=== PATIENT | male | born 1945 | race Caucasian/White ===

== ENCOUNTER → 2020-09-06 | Day surgery (SDC) | payer MEDICARE, BC ==
[~2020-09-06] MED LIST: Ketamine 200 MG/20 ML MDV ONE; Lactated Ringers 1,000 ML IV SCH; Propofol 200 MG/20 ML SDV ONE; fentaNYL 100 MCG/2 ML SDV ONE
[2020-09-06 09:20] VITALS: BP 102/73; PULSE 64
--- NOTE | 2020-09-06 11:14 | OR ---
DATE OF OPERATION: 09/06/2020 PREOPERATIVE DIAGNOSIS: CONSTIPATION. POSTOPERATIVE DIAGNOSIS: CONSTIPATION. SURGEON: Eliezer Holley MD PROCEDURE: 1. FULL-LENGTH COLONOSCOPY. 2. FORCEPS POLYPECTOMY X1. ANESTHESIA: MAC. COMPLICATIONS: None. SPECIMEN: 1. Small sessile cecal polyp. 2. Ascending colon biopsy x1. FINDINGS: 1. Full-length colonoscopy. 2. Severe mills-diverticulosis. 3. Mild melanosis coli. 4. Small sessile polyp, cecum. RECOMMENDATIONS: Followup colonoscopy in 5 years. INDICATIONS: The patient had been having some ongoing issues with constipation. We elected to proceed due to altered bowel habits. His last colonoscopy was 8 years ago. DESCRIPTION OF PROCEDURE: The patient was prepped and draped and placed in the left lateral decubitus position. A lubricated Olympus colonoscope was inserted and easily advanced through the cecum. Direct visualization of the ileocecal valve and appendiceal orifice was accomplished. The bowel prep was adequate. Upon withdrawal of the scope, in the cecal pouch, just in front of the ascending colon, the patient had a small 4 to 5 mm tubular adenoma removed in its entirety with forceps biopsy x2. 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 No inflammatory changes were seen. He did have signs of melanosis coli related to his constipation. Biopsy of the ascending colon was taken for confirmation. The rest of the transverse, descending, sigmoid, and rectosigmoid areas were free of any polyps, masses, ulcerations, or bleeding sites. No signs of any other worrisome lesions. The rectal vault appeared benign. Retroflexion of the scope in the rectum showed no anal lesions. Air was suctioned. The scope was removed without complication. CASPER/MARY /[id number]
== END ==
LOC: CC.SDS 07:54
PROVIDERS: ATTEND Family Medicine
DX: D12.0 Benign neoplasm of cecum (principal); K57.30 Diverticulosis of large intestine without perforation or abscess without bleeding; K59.00 Constipation, unspecified; K63.89 Other specified diseases of intestine; N40.1 Benign prostatic hyperplasia with lower urinary tract symptoms; N39.43 Post-void dribbling; E78.2 Mixed hyperlipidemia; M48.061 Spinal stenosis, lumbar region without neurogenic claudication; N52.9 Male erectile dysfunction, unspecified; E03.9 Hypothyroidism, unspecified; Z88.5 Allergy status to narcotic agent; Z20.828 Contact with and (suspected) exposure to other viral communicable diseases; Z01.812 Encounter for preprocedural laboratory examination; Z79.899 Other long term (current) drug therapy; Z79.82 Long term (current) use of aspirin; Z79.890 Hormone replacement therapy
CPT/HCPCS: 45380; J2704; J3010; J7120

== ENCOUNTER 2023-04-20 15:20 | Emergency (ER) | payer MEDICARE, BC ==
[2023-04-20 15:27] VITALS: BP 147/72; PULSE 85
[2023-04-20 15:45] LABS: BASOPHILS ABSOLUTE AUTO 0.01 10^3/uL (0.00-0.50); BASOPHILS PERCENT AUTO 0.2 % (0-1); EOSINOPHILS ABSOLUTE AUTO 0.21 10^3/uL (0.00-1.50); EOSINOPHILS PERCENT AUTO 3.5 % (0-6); HEMATOCRIT 41.6 % (42.0-52.0); HEMOGLOBIN 13.8 g/dL (14.0-18.0); IMMATURE GRAN ABSOLUTE AUTO 0.01 10^3/uL (0.00-0.49); IMMATURE GRAN PERCENT AUTO 0.2 % (0.0-4.9); LYMPHOCYTES ABSOLUTE AUTO 1.69 10^3/uL (0.60-5.00); LYMPHOCYTES PERCENT AUTO 28.3 % (24-44); MEAN CORPUSCULAR HEMOGLOBIN 29.9 pg (27.0-32.0); MEAN CORPUSCULAR HGB CONC 33.2 g/dL (32.0-36.0); MEAN CORPUSCULAR VOLUME 90.2 fL (83.0-97.0); MONOCYTES ABSOLUTE AUTO 0.46 10^3/uL (0.00-1.50); MONOCYTES PERCENT AUTO 7.7 % (0-10); NEUTROPHILS ABSOLUTE AUTO 3.59 x10^3/uL (1.80-8.00); NEUTROPHILS PERCENT AUTO 60.1 % (41-71); PLATELET COUNT,PLT 162 10^3/uL (150-400); RED BLOOD CELL COUNT 4.61 x10^6/uL (4.50-6.00)
[2023-04-20 15:56] LABS: ALBUMIN 3.7 g/dL (3.4-5.0); BILIRUBIN TOTAL 0.5 mg/dL (0.0-1.0); C-REACTIVE PROTEIN 0.81 mg/dL (<=0.30); CALCIUM 8.7 mg/dL (8.4-10.1); CREATININE 1.2 mg/dL (0.7-1.3); EST CRCL DRUG DOSING (CG) 54.91 mL/min; POTASSIUM,K 4.7 mEq/L (3.5-5.0); PROTEIN TOTAL,TP 6.7 g/dL (6.4-8.2)
== END 2023-04-20 16:38 | disposition home or self-care (01) ==
LOC: CC.ED 15:20
DX: J98.8 Other specified respiratory disorders (principal); B97.89 Other viral agents as the cause of diseases classified elsewhere; Z88.5 Allergy status to narcotic agent; Z20.822 Contact with and (suspected) exposure to COVID-19
CPT/HCPCS: 36415; 71046; 80053; 85025; 86140; 87430; 87804; 99283; 99284; U0002

== ENCOUNTER 2024-10-01 09:25 | Observation (INO) | payer MEDICARE, BC ==
[2024-10-01 09:42] LABS: BASOPHILS ABSOLUTE AUTO 0.02 10^3/uL (0.00-0.50); BASOPHILS PERCENT AUTO 0.2 % (0-1); EOSINOPHILS ABSOLUTE AUTO 0.18 10^3/uL (0.00-1.50); EOSINOPHILS PERCENT AUTO 2.2 % (0-6); HEMATOCRIT 40.3 % (42.0-52.0); IMMATURE GRAN ABSOLUTE AUTO 0.03 10^3/uL (0.00-0.49); IMMATURE GRAN PERCENT AUTO 0.4 % (0.0-4.9); LYMPHOCYTES ABSOLUTE AUTO 1.08 10^3/uL (0.60-5.00); LYMPHOCYTES PERCENT AUTO 13.5 % (24-44); MEAN CORPUSCULAR HEMOGLOBIN 29.9 pg (27.0-32.0); MEAN CORPUSCULAR HGB CONC 32.3 g/dL (32.0-36.0); MEAN CORPUSCULAR VOLUME 92.6 fL (83.0-97.0); MONOCYTES ABSOLUTE AUTO 1.14 10^3/uL (0.00-1.50); MONOCYTES PERCENT AUTO 14.2 % (0-10); NEUTROPHILS ABSOLUTE AUTO 5.57 x10^3/uL (1.80-8.00); NEUTROPHILS PERCENT AUTO 69.5 % (41-71); PLATELET COUNT,PLT 159 10^3/uL (150-400); RED BLOOD CELL COUNT 4.35 x10^6/uL (4.50-6.00)
[2024-10-01 09:59] LABS: ALANINE AMINOTRANSFERASE,ALT 22 U/L (12-78); ALBUMIN 3.6 g/dL (3.4-5.0); ALKALINE PHOSPHATASE 65 U/L (46-116); ASPARTATE AMNIOTRANSFERASE,AST 18 U/L (15-37); BILIRUBIN TOTAL 0.5 mg/dL (0.0-1.0); BLOOD UREA NITROGEN,BUN 21 mg/dL (7-18); C-REACTIVE PROTEIN 5.83 mg/dL (<=0.50); CALCIUM 8.9 mg/dL (8.4-10.1); CARBON DIOXIDE,CO2 29 mmol/L (21-32); CHLORIDE,CL 105 mEq/L (98-106); CREATININE 1.2 mg/dL (0.7-1.3); EST CRCL DRUG DOSING (CG) 54.03 mL/min; ESTIMATED GFR 62 mL/min (>=60); GLUCOSE RANDOM 155 mg/dL (75-99); POTASSIUM,K 4.8 mEq/L (3.5-5.0); PROTEIN TOTAL,TP 6.6 g/dL (6.4-8.2); SODIUM,NA 142 mEq/L (136-145)
[2024-10-01] MEDS: Ondansetron 4 MG/2 ML SDV IVPUSH STA (10:05)
[2024-10-01] MEDS: Meclizine 12.5 MG Tab PO ONE (10:05)
[2024-10-01] MEDS: Take Home: Ondansetron 4 MG Tab.DIS, 2 Tab Pack PO ONE (10:23)
[2024-10-01] MEDS: Take Home: Meclizine 12.5 MG Tab, 4 Tab Pack PO ONE (10:24)
[2024-10-01] MEDS ORDERED: Promethazine 25 MG Tab PO PRN (11:48)
[2024-10-01] MEDS ORDERED: Docusate Sodium 100 MG Cap PO PRN (11:48)
[2024-10-01] MEDS ORDERED: Acetaminophen 325 MG Tab PO PRN (11:48)
[2024-10-01] MEDS ORDERED: Prochlorperazine 5 MG in Sodium Chloride 0.9% 100 ML IV PRN (11:48)
[2024-10-01] MEDS ORDERED: Polyethylene Glycol 3350 Powder 17 GM Packet PO PRN (11:48)
[2024-10-01] MEDS ORDERED: Sodium Chloride 0.9% 10 ML Syringe FLUSH PRN (11:48)
[2024-10-01] MEDS ORDERED: Ondansetron 4 MG Tab.DIS PO PRN (11:48)
[2024-10-01] MEDS ORDERED: Meclizine 12.5 MG Tab PO PRN (11:48)
[2024-10-01] MEDS: Sodium Chloride 0.9% 1,000 ML IV SCH (12:02)
[2024-10-01] MEDS: Pravastatin 20 MG Tab PO SCH (19:27)
[2024-10-01] MEDS: Aspirin 81 MG Tab.EC PO SCH (19:27)
[2024-10-01] MEDS: Calcium Carbonate/Vitamin D3 1250 MG-5 MCG Tab PO SCH (19:28)
[2024-10-01] MEDS: Docusate Sodium 100 MG Cap PO SCH (19:28)
[2024-10-01] MEDS: Timolol Maleate 0.5% Ophth Soln 5 ML Bottle EYEBOTH SCH (19:45)
[2024-10-02] MEDS: Levothyroxine 50 MCG Tab PO SCH (07:35)
[2024-10-02 07:54] LABS: BASOPHILS ABSOLUTE AUTO 0.02 10^3/uL (0.00-0.50); BASOPHILS PERCENT AUTO 0.3 % (0-1); EOSINOPHILS PERCENT AUTO 1.3 % (0-6); HEMATOCRIT 38.8 % (42.0-52.0); HEMOGLOBIN 12.4 g/dL (14.0-18.0); IMMATURE GRAN ABSOLUTE AUTO 0.01 10^3/uL (0.00-0.49); IMMATURE GRAN PERCENT AUTO 0.1 % (0.0-4.9); LYMPHOCYTES ABSOLUTE AUTO 1.28 10^3/uL (0.60-5.00); LYMPHOCYTES PERCENT AUTO 16.3 % (24-44); MEAN CORPUSCULAR HEMOGLOBIN 30.1 pg (27.0-32.0); MEAN CORPUSCULAR VOLUME 94.2 fL (83.0-97.0); MONOCYTES ABSOLUTE AUTO 0.87 10^3/uL (0.00-1.50); MONOCYTES PERCENT AUTO 11.1 % (0-10); NEUTROPHILS ABSOLUTE AUTO 5.55 x10^3/uL (1.80-8.00); NEUTROPHILS PERCENT AUTO 70.9 % (41-71); PLATELET COUNT,PLT 161 10^3/uL (150-400); RED BLOOD CELL COUNT 4.12 x10^6/uL (4.50-6.00); WHITE BLOOD CELL COUNT,WBC 7.8 10^3/uL (4.0-11.0)
[2024-10-02 08:14] LABS: CALCIUM 8.8 mg/dL (8.4-10.1); CREATININE 1.2 mg/dL (0.7-1.3); EST CRCL DRUG DOSING (CG) 54.03 mL/min
[2024-10-02 09:14] VITALS: BP 131/60; PULSE 61
== END 2024-10-02 10:40 | disposition home or self-care (01) ==
LOC: CC.ED 09:25 → CC.MS 11:08 → UNDOADMOB 11:23
PROVIDERS: ADMIT Nurse Practitioner Family; ATTEND Nurse Practitioner Family
DX: U07.1 COVID-19 (principal); R42 Dizziness and giddiness; R11.0 Nausea; Z88.5 Allergy status to narcotic agent; Z79.82 Long term (current) use of aspirin; Z79.899 Other long term (current) drug therapy; Z79.890 Hormone replacement therapy
CPT/HCPCS: 36415; 71045; 80048; 80053; 83735; 84484; 85025; 86140; 87428-QW; 93005; 93010; 96374; 99223; 99239; 99285-25; A9270-GY; G0378; J2405; J7030

== ENCOUNTER 2024-10-13 18:12 | Emergency (ER) | payer MEDICARE, BC ==
[2024-10-13] MEDS: Ondansetron 4 MG Tab.DIS PO ONE (18:22)
[2024-10-13] MEDS: Meclizine 12.5 MG Tab PO ONE (18:22)
[2024-10-13 18:42] LABS: BASOPHILS ABSOLUTE AUTO 0.01 10^3/uL (0.00-0.50); BASOPHILS PERCENT AUTO 0.1 % (0-1); EOSINOPHILS ABSOLUTE AUTO 0.06 10^3/uL (0.00-1.50); EOSINOPHILS PERCENT AUTO 0.8 % (0-6); HEMATOCRIT 41.2 % (42.0-52.0); HEMOGLOBIN 13.2 g/dL (14.0-18.0); IMMATURE GRAN ABSOLUTE AUTO 0.01 10^3/uL (0.00-0.49); IMMATURE GRAN PERCENT AUTO 0.1 % (0.0-4.9); LYMPHOCYTES ABSOLUTE AUTO 1.49 10^3/uL (0.60-5.00); LYMPHOCYTES PERCENT AUTO 19.8 % (24-44); MEAN CORPUSCULAR HEMOGLOBIN 29.5 pg (27.0-32.0); MONOCYTES ABSOLUTE AUTO 0.48 10^3/uL (0.00-1.50); MONOCYTES PERCENT AUTO 6.4 % (0-10); NEUTROPHILS ABSOLUTE AUTO 5.46 x10^3/uL (1.80-8.00); NEUTROPHILS PERCENT AUTO 72.8 % (41-71); PLATELET COUNT,PLT 146 10^3/uL (150-400); RED BLOOD CELL COUNT 4.48 x10^6/uL (4.50-6.00); WHITE BLOOD CELL COUNT,WBC 7.5 10^3/uL (4.0-11.0)
[2024-10-13 18:59] LABS: ALANINE AMINOTRANSFERASE,ALT 20 U/L (12-78); ALBUMIN 3.8 g/dL (3.4-5.0); ALKALINE PHOSPHATASE 61 U/L (46-116); ASPARTATE AMNIOTRANSFERASE,AST 19 U/L (15-37); BILIRUBIN TOTAL 0.7 mg/dL (0.0-1.0); BLOOD UREA NITROGEN,BUN 27 mg/dL (7-18); C-REACTIVE PROTEIN < 0.50 mg/dL (<=0.50); CALCIUM 9.1 mg/dL (8.4-10.1); CARBON DIOXIDE,CO2 29 mmol/L (21-32); CHLORIDE,CL 105 mEq/L (98-106); CREATININE 1.2 mg/dL (0.7-1.3); EST CRCL DRUG DOSING (CG) 54.03 mL/min; ESTIMATED GFR 62 mL/min (>=60); GLUCOSE RANDOM 122 mg/dL (75-99); POTASSIUM,K 4.5 mEq/L (3.5-5.0); PROTEIN TOTAL,TP 6.7 g/dL (6.4-8.2); SODIUM,NA 142 mEq/L (136-145)
[2024-10-13 19:10] LABS: APPEARANCE,URINE CLEAR (CLEAR); BILIRUBIN,URINE NEGATIVE (NEGATIVE); COLOR,URINE YELLOW (YELLOW); GLUCOSE,URINE NEGATIVE (NEGATIVE); KETONES,URINE 40 mg/dL (NEGATIVE); LEUKOCYTE ESTERASE,URINE NEGATIVE (NEGATIVE); NITRITE,URINE NEGATIVE (NEGATIVE); OCCULT BLOOD,URINE NEGATIVE (NEGATIVE); PROTEIN,URINE NEGATIVE (NEGATIVE); UROBILINOGEN,URINE 0.2 EU/dL (0.2-1.0)
[2024-10-13 20:17] VITALS: BP 164/77; PULSE 61
== END 2024-10-13 20:50 | disposition home or self-care (01) ==
LOC: CC.ED 18:12
DX: R42 Dizziness and giddiness (principal); U09.9 Post COVID-19 condition, unspecified; H53.8 Other visual disturbances; R11.2 Nausea with vomiting, unspecified; Z88.5 Allergy status to narcotic agent; Z79.890 Hormone replacement therapy; Z79.899 Other long term (current) drug therapy
CPT/HCPCS: 36415; 70450; 71045; 80053; 81003; 84484; 85025; 86140; 93005; 99284; A9270